=== PATIENT | male | born 1990 | race American Indian/Alaskan Native ===

== ENCOUNTER 2018-09-24 14:52 | Emergency (ER) | payer BC ==
[~2018-09-24] VITALS: Ht 193 cm; Wt 110.8 kg
[2018-09-24 15:35] VITALS: BP 150/75
== END 2018-09-24 17:57 | disposition home or self-care (01) ==
LOC: ER 14:52
DX: S30.21XA Contusion of penis, initial encounter (principal); X58.XXXA Exposure to other specified factors, initial encounter; Y93.89 Activity, other specified; Y92.89 Other specified places as the place of occurrence of the external cause; Y99.9 Unspecified external cause status
CPT/HCPCS: 99281